=== PATIENT | female | born 1945 | race Caucasian/White ===

== ENCOUNTER → 2016-12-21 | Outpatient (CLI) | payer MEDICARE ==
[2015-08-10 10:52] VITALS: BP 150/85
[~2016-12-21] MED LIST: ATEN50TA PO; CEFP200T PO; DICL75TA PO; LISI10TA2 PO
== END | disposition home or self-care (01) ==
LOC: LAB 11:52
PROVIDERS: ATTEND Orthopaedic Surgery Sports Medicine
DX: M25.552 Pain in left hip (principal)
CPT/HCPCS: 36415; 85651; 86140